=== PATIENT | male | born 1980 | race Caucasian/White ===

== ENCOUNTER 2019-02-04 16:20 | Emergency (ER) | payer SELFPAY ==
[~2019-02-04] VITALS: Ht 180.3 cm; Wt 68.2 kg
[2019-02-04 16:39] VITALS: Ht 180.3 cm; Wt 68.2 kg
[2019-02-04] MEDS ORDERED: CYCLOBENZAPRINE10 MG PO (18:37)
[2019-02-04 19:01] VITALS: BP 125/78
== END 2019-02-04 19:03 | disposition home or self-care (01) ==
LOC: D.ER 16:20
DX: M54.12 Radiculopathy, cervical region (principal); M47.892 Other spondylosis, cervical region; J44.9 Chronic obstructive pulmonary disease, unspecified; J45.909 Unspecified asthma, uncomplicated; Z72.0 Tobacco use

== ENCOUNTER 2019-02-21 17:20 | Emergency (ER) | payer MEDICAID ==
[~2019-02-21] VITALS: Ht 180.3 cm; Wt 70.5 kg
[~2019-02-21 17:20] MED LIST: CYCLOBENZAPRINE10 MG PO
[2019-02-21 17:28] VITALS: Ht 180.3 cm; Wt 70.5 kg
[2019-02-21] MEDS ORDERED: TORADOL10 MG PO (19:42)
[2019-02-21] MEDS ORDERED: NEURONTIN 300300 MG PO (19:42)
[2019-02-21 20:16] VITALS: BP 112/63
== END 2019-02-21 20:17 | disposition home or self-care (01) ==
LOC: D.ER 17:20
DX: M54.2 Cervicalgia (principal); J44.9 Chronic obstructive pulmonary disease, unspecified; Z72.0 Tobacco use

== ENCOUNTER 2019-03-01 16:23 | Emergency (ER) | payer MEDICAID ==
[~2019-03-01] VITALS: Ht 180.3 cm; Wt 68.2 kg
[~2019-03-01 16:23] MED LIST changes: +NEURONTIN 300300 MG PO; +TORADOL10 MG PO
[2019-03-01 16:54] VITALS: Ht 180.3 cm; Wt 68.2 kg
[2019-03-01] MEDS ORDERED: TALWIN NX1 TAB PO (19:25)
[2019-03-01] MEDS ORDERED: MEDROL DOSE PACK4 MG PO (19:25)
[2019-03-01] MEDS ORDERED: ATARAX 25 MG TA25 MG PO (19:28)
[2019-03-01 20:10] VITALS: BP 112/73
== END 2019-03-01 20:10 | disposition home or self-care (01) ==
LOC: D.ER 16:23
DX: M25.511 Pain in right shoulder (principal); G47.00 Insomnia, unspecified

== ENCOUNTER 2020-09-06 11:45 | Emergency (ER) | payer MEDICAID ==
[~2020-09-06] VITALS: Ht 180.3 cm; Wt 71.8 kg
[~2020-09-06 11:45] MED LIST changes: +ATARAX 25 MG TA25 MG PO; +MEDROL DOSE PACK4 MG PO; +TALWIN NX1 TAB PO
[2020-09-06 11:52] VITALS: BP 113/87; Ht 180.3 cm; Wt 71.8 kg
== END 2020-09-06 13:44 | disposition left against medical advice (07) ==
LOC: D.ER 11:45
DX: M79.603 Pain in arm, unspecified (principal)